=== PATIENT | male | born 1935 | race Caucasian/White ===

== ENCOUNTER 2018-10-14 05:35 | Day surgery (SDC) | payer OTHER ==
[~2018-10-14] VITALS: Ht 182.9 cm; Wt 84.8 kg
--- NOTE | ~2018-10-14 | O ---
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 PROCEDURE: Right lower lid ectropion repair with transconjunctival right lower lid and cheek lift. SURGEON: Allan Jean Baptiste M.D. TAX EXAMINER: None. ANESTHESIA: MAC. COMPLICATIONS: None. INDICATIONS FOR SURGERY: This pleasant 83-year-old gentleman had a right lower lid ectropion. 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 He presents today for a right lower lid ectropion repair combined with transconjunctival right lower lid and cheek lift in order to attempt to preserve his ocular surface milieu and reduce his risk for loss of vision and damage to his eye. Informed consent was obtained to include but not limited to the potential risk for loss of vision, bleeding, infection, failure to improve the problem, and the potential need for further surgery or treatment. DESCRIPTION OF PROCEDURE: The patient was taken to the Operating Room where 2% Xylocaine with epinephrine mixed with equal parts of 0.75% Marcaine with Wydase was administered transconjunctivally and transcutaneously to the right lower lid, the right lateral canthus, the right cheek and the right infratemporal fossa. The patient was subsequently prepped and draped in the usual sterile fashion. A Lance clamp was then used to clamp the right lateral canthus following which a sharp canthotomy and cantholysis was performed. The tarsal strip was then prepared laterally removing the lash-bearing portion of the redundant lid margin and the redundant tarsal plate. Hemostasis was then [address] [address] OPERATIVE REPORT Name: ANDIE JOE Room #: 150-4 [facility].#: [id number] Admission: 10/14/18 ������������������ Attend Phys: Allan Jean Baptiste MD Discharge: ������������������ Date of : 35 Report #: [id number] re-achieved. A transconjunctival incision was then made below the inferior border of the tarsal plate across the width of the lid. The dissection was then carried down primarily using sharp dissection into the premalar tissues. Hemostasis at that point was reobtained. The lower lid and cheek tissues were then elevated and resuspended with multiple interrupted 5-0 mattress chromic sutures. The lower lid and cheek elevated well. The tarsal strip was then reattached to the internal portion of the lateral orbital tubercle with interrupted 5-0 Prolene sutures. The subcutaneous structures and the skin were then closed with interrupted 6-0 plain gut sutures. The wounds were then cleaned and dressed with erythromycin ophthalmic ointment. The patient subsequently transported to the recovery area having tolerated the procedures well with no anesthetic or operative complications being noted. ��������������������������������������������� ���������������������������������������� By: ��������������������������������������������� [id number] Allan Jean Baptiste MD /nt
[~2018-10-14 05:35] MED LIST: ARICEPT10 M1 PO; ASPIRIN325 PO; B12INJ IM; BACTRIM DS TAB1 EACH PO; COLACE100 MG PO; DEPAKOTE ER250 MG PO; ERYTHROMYCIN E3.5 G3 OPHTHALMIC; LANTUS100 UNIT/M SUBQ; LOVASTAT40 PO; LOVASTATIN 20 M20 MG PO; METFORMIN HCL500 MG PO; MINOCYCLINE HC100 M2 PO; MIRALAX17 GM PO; NAMENDA 10 MG T10 MG PO; NOVOLOG100 UNIT/1 SUBQ; OCUSOFT LID SC1 EACH TOP; REMERON15 MG PO; SYSTANE 0.3-0.415 ML OPHTHALMIC; VITAMIN D3400 UNIT PO; [UNRECOGNIZED DRUG - OTHER] OPHTHALMIC
[2018-10-14 09:30] VITALS: BP 127/65
== END 2018-10-14 11:55 | disposition home or self-care (01) ==
LOC: TBA 05:35 → OR 05:35 → TBA 05:36 → OR 11:35
DX: H02.102 Unspecified ectropion of right lower eyelid (principal); H02.532 Eyelid retraction right lower eyelid; H02.202 Unspecified lagophthalmos right lower eyelid; H18.9 Unspecified disorder of cornea; E78.5 Hyperlipidemia, unspecified; F32.9 Major depressive disorder, single episode, unspecified; E11.9 Type 2 diabetes mellitus without complications; G30.9 Alzheimer's disease, unspecified; F02.80 Dementia in other diseases classified elsewhere, unspecified severity, without behavioral disturbance, psychotic disturbance, mood disturbance, and anxiety; Z98.890 Other specified postprocedural states; Z87.891 Personal history of nicotine dependence; Z85.828 Personal history of other malignant neoplasm of skin; Z79.4 Long term (current) use of insulin; Z98.41 Cataract extraction status, right eye; Z98.42 Cataract extraction status, left eye; Z79.899 Other long term (current) drug therapy
CPT/HCPCS: 50010; 50101; 50386; 50398; 51636; 56527; 56531; 62110; 62850; 70005